=== PATIENT | female | born 1990 | race Two or more races ===

== ENCOUNTER 2023-03-25 20:04 | Emergency (ER) | payer SELFPAY ==
[~2023-03-25] VITALS: Ht 160 cm; Wt 55.0 kg
[2023-03-25] MEDS ORDERED: diphenhdrAMINE HCL 50 MG/1 ML VL ONE (20:24)
[2023-03-25] MEDS ORDERED: HALOPERIDOL LACTATE 5 MG/ML INJ VIAL ONE (20:24)
[2023-03-25] MEDS ORDERED: diphenhdrAMINE HCL 50 MG/1 ML VL IM ONE (20:30)
[2023-03-25] MEDS ORDERED: HALOPERIDOL LACTATE 5 MG/ML INJ VIAL IM ONE (20:30)
[2023-03-25 20:46] VITALS: BP 125/78; PULSE 75; RESP 22; O2SAT 93
== END 2023-03-25 20:30 | disposition short-term general hospital (02) ==
LOC: ER 20:04
DX: S00.81XA Abrasion of other part of head, initial encounter (principal); W22.8XXA Striking against or struck by other objects, initial encounter; Y93.89 Activity, other specified; Y92.89 Other specified places as the place of occurrence of the external cause; Y99.8 Other external cause status
CPT/HCPCS: 96372; 99285; J1200; J1630